=== PATIENT | female | born 1945 | race Hispanic/Latino ===

== ENCOUNTER 2018-08-24 13:21 | Emergency (ER) | payer MEDICARE, OTHER ==
[~2018-08-24] VITALS: Ht 180.3 cm; Wt 83.9 kg
[~2018-08-24 13:21] MED LIST: JANUMET 50-1,01 EACH PO; LIPITOR40 MG PO; OMEPRAZOLE40 MG PO; Z FENOFIBRATE; Z.0.ACTONEL35 MG; Z.0.LOSARTAN POTASS5 PO; Z.0.METFORMIN HCL500; Z.0.NORVASC2.5 MG PO; Z.0.ZOCOR40 MG; [UNRECOGNIZED DRUG - REMARK]
--- OUTSIDE RECORDS SUMMARY | 2018-08-24 13:25 | XMS REPORT | Summary of Care ---
Author Author Terrance Leal, Demetrius [place] Unknown Address [facility] Phone Unavailable Care Team Providers Care Manager Finance Name Role Phone Terrance Leal, Demetrius Unavailable Unavailable RADHA Kramer, ELI Unavailable Unavailable MATTY PRIDE M.D., JOSE ELIAS Unavailable Unavailable VIKI Leal, MELANI Unavailable Unavailable WENDY PRADO, DAYSI Hall Unavailable Unavailable WENDY Leal, DAYSI Unavailable Unavailable RADHA MUSE, ELI Unavailable Unavailable Jayson PRADO, Sascha Unavailable Unavailable TERRANCE PRADO [facility], DEMETRIUS Acosta Unavailable Unavailable VIKI PRADO [facility], MELANI VOSS Unavailable Unavailable Rubin PRADO, Rick Unavailable Unavailable CHRISTINA CORRIGAN [facility], KATTY Unavailable Unavailable ELIZABETH, JOSE ELIAS Unavailable Unavailable LISA PRADO [facility], PHONG HANNA Unavailable Unavailable Unavailable Unavailable Functional Status Name Dates Details Functional status health issues are not documented Status: Name Dates Details Cognitive status health issues are not documented Status: Problems Name Dates Details Need for pneumococcal vaccination (V03.82, Z23) Status: Active Osteoporosis (733.00, M81.0) Status: Active Need for vaccination with 13-polyvalent pneumococcal conjugate vaccine (V03.82, Z23) Status: Active Rheumatoid arthritis (714.0, M06.9) Status: Active Cervicalgia (723.1, M54.2) Status: Active Headache (784.0, R51) Status: Active Cataract (366.9, H26.9) Status: Active Flu vaccine need (V04.81, Z23) Status: Active UTI symptoms (788.99, R39.9) Status: Active Cramp and spasm (781.0, R25.2) Status: Active Pre-op exam (V72.84, Z01.818) Status: Active Dysuria (788.1, R30.0) Status: Active Paresthesia (782.0, R20.2) Status: Active Allergic rhinitis, seasonal (477.9, J30.2) Status: Active Essential hypertension, benign (401.1, I10) Status: Active Neuropathy (355.9, G62.9) Status: Active Depression screening (V79.0, Z13.31) Status: Active Encounter for mini-mental status examination Status: Active Advance directive discussed with patient (V65.49, Z71.89) Status: Active Urinary urgency (788.63, R39.15) Status: Active Encounter for hepatitis C virus screening test for high risk patient (V73.89, Z11.59) Status: Active Dysthymia (300.4, F34.1) Status: Active Chest pain on breathing (786.52, R07.1) Status: Active Diverticulitis (562.11, K57.92) Status: Active Depression (311, F32.9) Status: Active Colon cancer screening (V76.51, Z12.11) Status: Active IBS (irritable bowel syndrome) (564.1, K58.9) Status: Active Breast cancer screening (V76.10, Z12.31) Status: Active Acute foot pain, left (729.5, M79.672) Status: Active Left ankle pain (719.47, M25.572) Status: Active Right shoulder pain (719.41, M25.511) Status: Active Abnormal laboratory test (796.4, R89.9) Status: Active Hematuria (599.70, R31.9) Status: Active 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, 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) Status: Active Urinary incontinence (788.30, R32) Status: Active Fatigue (780.79, R53.83) Status: Active Hospital discharge follow-up (V67.59, Z09) Status: Active Abnormal blood chemistry (790.6, R79.9) Status: Active Shingles rash (053.9, B02.9) Status: Active Neuralgia, 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, 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) Status: Active Javier angioma (228.01, D18.01) Status: Active Seborrheic keratosis (702.19, L82.1) Status: Active Solar lentigo (709.09, L81.4) Status: Active Post-inflammatory hyperpigmentation (709.00, L81.0) Status: Active Vitamin D deficiency (268.9, E55.9) Status: Active Insomnia (780.52, G47.00) Status: Active Need for shingles vaccine (V04.89, Z23) Status: Active Vitamin B12 deficiency (266.2, E53.8) Status: Active Type 2 diabetes mellitus (250.00, E11.9) Status: Active Lymphoma (202.80, C85.90) Status: Active Hemolytic anemia (283.9, D58.9) Status: Active Diarrhea, unspecified (787.91, R19.7) Status: Active Abdominal pain (789.00, R10.9) Status: Active Acid reflux disease (530.81, K21.9) Status: Active Hyperlipidemia (272.4, E78.5) Status: Active Autoimmune hemolytic anemia (283.0, D59.1) Status: Active Tinea cruris (110.3, B35.6) Status: Active History of steroid therapy (V87.45, Z92.241) Status: Active Anxiety, generalized (300.02, F41.1) Status: Active Adult BMI 34.0-34.9 kg/sq m (V85.34, Z68.34) Status: Active Diabetes mellitus type 2, uncontrolled (250.02, E11.65) Status: Active Other closed nondisplaced fracture of proximal end of left humerus, initial encounter (812.09, S42.295A) Status: Active Anemia (285.9, D64.9) Status: Active Medications Name Dates Details Janumet 50-1000 MG Oral Tablet TAKE 1 TABLET BY MOUTH TWICE A DAY WITH MEALS... needs office visit Quantity: 180 VIKI Leal, MELANI * Start : 08-Jan-2016 Active Accu-Chek Chhaya Plus In Vitro Strip use to check blood sugar twice a day: fasting in the morning and either before o r 2 hours after dinner * Quantity: 1 Refills: 5 VIKI Leal, MELANI * Start : 10-Nov-2016 Active 100 Strip Box Accu-Chek FastClix Lancets USE TO CHECK BLOOD SUGAR TWICE A DAY * Quantity: 1 Refills: 5 MELANI DREW M.D. * Start : 10-Nov-2016 Active 102 Unit Box Zolpidem Tartrate 5 MG Oral Tablet TAKE 1 TABLET BY MOUTH AT BEDTIME NEEDED * Quantity: 30 Refills: 0 MELANI DREW M.D. * Start : 27-Jun-2018 Active predniSONE 20 MG Oral Tablet Take one tablet in the morning. * Quantity: 60 Refills: 3 Demetrius Fall M.D. * Start : 12-Aug-2017 Active Vitamin D (Ergocalciferol) 07537 UNIT Oral Capsule TAKE ONE CAPSULE BY MOUTH ONE TIME PER WEEK * Quantity: 13 Refills: 1 MELANI DREW M.D. * Start : 14-Apr-2018 Active Shingrix 50 MCG/0.5ML Intramuscular Suspension Reconstituted 0.5ml IM x 1, repeat second dose in 2-6 months. * Quantity: 1 Refills: 1 RADHA P.AELI Persaud * Start : 14-Feb-2018 Active Vitamin B12 1000 MCG Oral Tablet Extended Release TAKE 1 TABLET DAILY DIRECTED-OTC * Quantity: 90 Refills: 1 MELANI DREW M.D. * Start : 18-Apr-2018 Active Ergocalciferol 39911 UNIT Oral Capsule TAKE 1 CAPSULE WEEKLY. * Quantity: 4 Refills: 2 JOSE ELIAS SCOTT M.D. * Start : 01-Aug-2018 Active HYDROcodone-Acetaminophen 5-325 MG Oral Tablet TAKE 1 TABLET EVERY 4 TO 6 HOURS NEEDED FOR PAIN. * Quantity: 30 Refills: 0 JOSE ELIAS SCOTT M.D. * Start : 01-Aug-2018 Active Allergies and Adverse Reactions Name Dates Details No Known Allergies (Allergy) Status: Active Past Medical History Name Dates Details Type 2 diabetes mellitus (250.00, E11.9) Status: Active History of arthritis (V13.4, Z87.39) Status: Resolved History of diabetes mellitus (V12.29, Z86.39) Status: Resolved History of Diverticulosis (562.10, K57.90) Status: Resolved History of gout (V12.29, Z87.39) Status: Resolved History of hemorrhoids (V13.89, Z87.19) Status: Resolved History of hypertension (V12.59, Z86.79) Status: Resolved History of osteoporosis (V13.59, Z87.39) Status: Resolved Procedures Procedure Dates Details [H] Occult Blood, Fecal Immunoassay Date: 14-Aug-2018 History of Cholecystectomy Completed History of Colostomy Completed History of Gallbladder surgery Completed Immunization Name Dates Details Fluzone INJ on: 09-Feb-2014 Fluzone Quadrivalent 0.5 ML Intramuscular Suspension Lot #: [id number] on: 23-Jan-2015 Prevnar 13 Intramuscular Suspension Lot #: [id number] on: 23-Jan-2015 Fluzone Quadrivalent 0.5 ML Intramuscular Suspension Prefilled Syringe Lot #: [id number] on: 20-Jan-2016 Fluzone High-Dose 0.5 ML Intramuscular Suspension Prefilled Syringe Lot #: [id number] on: 11-Feb-2017 Fluzone High-Dose 0.5 ML Intramuscular Suspension Prefilled Syringe Lot #: [id number] on: 14-Feb-2018 Family History Name Dates Details Family history of malignant neoplasm (V16.9, Z80.9) Comments: Family History Status: Active Name Dates Details Family history of myocardial infarction (V17.3, Z82.49) Status: Active Family history of colon cancer (V16.0, Z80.0) Status: Active Name Dates Details Family history of lung cancer (V16.1, Z80.1) Status: Active Social History Name Dates Details - Status: Name Dates Details Former smoker Former smoker Vital Signs Date Test Result Details [id number] BP Systolic 110 mm[Hg] Status: Comments: Location: LUE; Position: Sitting BP Diastolic 68 mm[Hg] Status: Comments: Location: LUE; Position: Sitting Height 60 in Status: Weight 173 lb Status: Body Mass Index Calculated 33.79 kg/m2 Status: Body Surface Area Calculated 1.76 m2 Status: Heart Rate 82 /min Status: Comments: Location: L Radial; Quality: Normal Results Date Description Value Details [id number] [QLH] CBC (INCLUDES DIFF/PLT) CBC (INCLUDES DIFF/PLT) Cancel Reason: Ordered In Error [id number] [QLH] Differential Differential Cancel Reason: Lab Cancellation [id number] [U] XRAY SHOULDER MIN 2 VWS LEFT 73483 XR SHOULDER MIN 2 VWS LEFT Images acquired, not reported on this accession number. [id number] [QL] CBC (INCLUDES DIFF/PLT) CBC (INCLUDES DIFF/PLT) Cancel Reason: Hemolyzed [id number] [QL] Differential Differential Cancel Reason: Lab Cancellation Plan of Care Name Dates Details Planned Observations Planned Goals not documented Planned Encounters Appointment; Demetrius Fall M.D. On: 29-Aug-2018 11:00 Appointment; MELANI DREW M.D. On: 29-Aug-2018 14:40 Appointment; PHONG GONZALEZ M.D. On: 14-Sep-2018 11:15 Appointment; RICK JARAMILLO M.D. On: 19-Sep-2018 14:15 Appointment; KATTY VASQUEZ D.O. On: 27-Sep-2018 10:00 Appointment; ROSALBA BRADSHAW M.D. On: 20-Oct-2018 8:15 Instructions Name Dates Details Instructions not documented Encounters Appointment; ELI GARCIA P.A. Encounter Diagnosis: Problem not documented On: 06-Oct-2016 8:15 Appointment; Demetrius Fall M.D. Encounter Diagnosis: Problem not documented On: 19-Oct-2016 11:45 Appointment; Demetrius Fall M.D. Encounter Diagnosis: Problem not documented On: 09-Nov-2016 13:00 Appointment; MELANI DREW M.D. Encounter Diagnosis: Problem not documented On: 10-Nov-2016 8:00 Appointment; Demetrius Fall M.D. Encounter Diagnosis: Problem not documented On: 26-Nov-2016 10:45 Appointment; MELANI DREW M.D. Encounter Diagnosis: Problem not documented On: 29-Nov-2016 8:40 Appointment; MELANI DREW M.D. Encounter Diagnosis: Problem not documented On: 03-Jan-2017 15:40 Appointment; MARCELINO [address] Encounter Diagnosis: Problem not documented On: 07-Jan-2017 15:00 Appointment; Demetrius Fall M.D. Encounter Diagnosis: Problem not documented On: 11-Jan-2017 13:15 Appointment; ZABRINA MCNEILL M.D. Encounter Diagnosis: Problem not documented On: 19-Jan-2017 10:30 Appointment; MELANI DREW M.D. Encounter Diagnosis: Problem not documented On: 02-Feb-2017 16:00 Appointment; Demetrius Fall M.D. Encounter Diagnosis: Problem not documented On: 11-Feb-2017 11:30 Appointment; Demetrius Fall M.D. Encounter Diagnosis: Problem not documented On: 15-Apr-2017 13:15 Appointment; MELANI DREW M.D. Encounter Diagnosis: Problem not documented On: 03-May-2017 16:00 Appointment; Demetrius Fall M.D. Encounter Diagnosis: Problem not documented On: 10-May-2017 13:15 Appointment; ELI GARCIA P.A. Encounter Diagnosis: Problem not documented On: 01-Jun-2017 10:30 Appointment; Demetrius Fall M.D. Encounter Diagnosis: Problem not documented On: 10-Jun-2017 13:15 Appointment; MELANI DREW M.D. Encounter Diagnosis: Problem not documented On: 02-Aug-2017 16:00 Appointment; Demetrius Fall M.D. Encounter Diagnosis: Problem not documented On: 12-Aug-2017 13:15 Appointment; MELANI DREW M.D. Encounter Diagnosis: Problem not documented On: 12-Sep-2017 16:00 Appointment; ESTHELA KEENAN NP Encounter Diagnosis: Problem not documented On: 23-Sep-2017 10:00 Appointment; Demetrius Fall M.D. Encounter Diagnosis: Problem not documented On: 23-Sep-2017 13:15 Appointment; ESTHELA KEENAN NP Encounter Diagnosis: Problem not documented On: 30-Sep-2017 12:30 Appointment; MELANI DREW M.D. Encounter Diagnosis: Problem not documented On: 19-Oct-2017 16:00 Appointment; ROSALBA BRADSHAW M.D. Encounter Diagnosis: Problem not documented On: 21-Oct-2017 8:30 Appointment; MELANI DREW M.D. Encounter Diagnosis: Problem not documented On: 01-Nov-2017 15:40 Appointment; MELANI DREW M.D. Encounter Diagnosis: Problem not documented On: 10-Jan-2018 14:20 Appointment; MARCELINO HDZ RD Encounter Diagnosis: Problem not documented On: 11-Jan-2018 10:00 Appointment; MELANI DREW M.D. Encounter Diagnosis: Problem not documented On: 14-Feb-2018 10:00 Appointment; MELANI DREW M.D. Encounter Diagnosis: Problem not documented On: 17-Apr-2018 10:00 Appointment; RICK JARAMILLO M.D. Encounter Diagnosis: Problem not documented On: 26-May-2018 13:00 Appointment; RICK JARAMILLO M.D. Encounter Diagnosis: Problem not documented On: 19-Jun-2018 14:45 Appointment; KATTY VASQUEZ D.O. Encounter Diagnosis: Problem not documented On: 28-Jun-2018 13:30 Appointment; RICK JARAMILLO M.D. Encounter Diagnosis: Problem not documented On: 06-Jul-2018 9:30 Appointment; MELANI DREW M.D. Encounter Diagnosis: Problem not documented On: 17-Jul-2018 10:00 Appointment; JOSE ELIAS SCOTT M.D. Encounter Diagnosis: Problem not documented On: 01-Aug-2018 12:30 Appointment; RICK JARAMILLO M.D. Encounter Diagnosis: Problem not documented On: 07-Aug-2018 10:15 Appointment; RICK JARAMILLO M.D. Encounter Diagnosis: Problem not documented On: 14-Aug-2018 16:15 Appointment; PHONG GONZALEZ M.D. Encounter Diagnosis: Problem not documented On: 15-Aug-2018 11:00
--- OUTSIDE RECORDS SUMMARY | 2018-08-24 13:25 | XMS REPORT ---
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 Allergies, Adverse Reactions, Alerts Allergy Name Allergy Type Status Severity Reaction(s) Onset Date Inactive Date Treating Clinician Comments No Known Allergies DA Active U 2018-07-30 00:00:00 No Known Allergies DA Active U 2017-09-16 00:00:00 Medications This patient has no known medications. Results Test Description Test Time Test Comments Text Results Atomic Results Result Comments - XR HUMERUS 2 + V LT 2018-07-30 15:22:00 FAX: Glendy Lamas [phone] [place]: St: PRE Name: ANDREALEEROY [facility] : 1945 Age/S: 73/F [address] [place] [address] Unit #: [id number] Loc: [place] [address] Phys: Glendy Whitlock Acct: [id number] Dis Date: Status: PRE ER PHONE #: [phone] Exam Date: 07/30/2018 1517 FAX #: [phone] Reason: continued pain, surgical neck fracture EXAMS: CPT CODE: [id number] XR HUMERUS 2 + [place] LT [address]353 Clinical Indication: continued pain, surgical neck fracture Comparison: None FINDINGS: A comminuted fracture of the left humeral head is present. The left humeral head is also inferiorly and anteriorly displaced from the glenoid The joint spaces are preserved. No radiopaque foreign body is seen in the soft tissues. The soft tissues are unremarkable. IMPRESSION: Left humeral head fracture with anteriorly and inferiorly left shoulder dislocation. SL: [id number] at 1522 Reported and signed by: Zeferino Aponte M.D. CC: Glendy MUSE Technologist: Oralia Johnson RT(R) Trnscrd Date/Time/By: 07/30/2018 (1522) : By: Chan.LNV Orig Print D/T: S: 07/30/2018 (6419) PAGE 1 Signed Report LEUK/LYMPH MARKERS D 2018-07-25 14:30:00 LEUK/LYMPHOMA PANEL (test code=LEULYM) CLINICAL () A CD5+, CD23+ clonal B cell population is detected with dim kappa lightchain restriction, representing 39% of the B cells and 1% of theleukocytes. The phenotype is typical of chronic lymphocytic leukemia(CLL)/small lymphocytic lymphoma (SLL). There is no significant expressionof CD38.There is no loss of, or aberrant expression of, the draper T cell antigens tosuggest a neoplastic T cell process.CD4:CD8 ratio 0.9No circulating blasts are detected. There is no immunophenotypic evidenceof abnormal myeloid maturation. Rare neutrophils show slightly left- shiftedmaturation.Rare monocytes show partial dim aberrant expression of CD56, a finding thatcan be seen in association with both reactive/activated processes as wellas neoplastic processes.Analysis of the leukocyte population shows: granulocytes 89%, monocytes 6%,lymphocytes 5%, blasts <0.5%, B cells 2%, T cells 2%, NK cells 1%. COMMENT(S) (test code=COMM) () Peripheral blood VIABILITY (test code=VIABILI) () 91% The specimen was 3 days old when received in the Flow Cytometrylaboratory. FLOW CYTO INTERPRETATION (test code=INTFLOW) () Oralia Beasley GATING STRATEGY (test code=GATSTRAT) () 8 color analysis with CD45/SSC gating COMMENT(S) (test code=COM) Flow Interpretation:Minute CD5+, CD23+ clonal B cell population detected,compatible with CLL/SLL phenotype, CD38 negative, 1% ofleukocytes, <5000 cells/uL. (See comment.) Flow Comment:Recommend clinical correlation and follow up as appropriate.If the patient has a prior diagnosis of CLL, then thefindings may represent persistent involvement. In theabsence of a prior diagnosis of leukemia/lymphoma, thefinding of a small (<5000 cells/uL) clonal B cell populationsuggests monoclonal B cell lymphocytosis. Phenotype Chart:CD2 (-) CD3 (-)CD4 (-) CD5 (+)CD7 (-) CD8 (-)CD10 (-) CD11b (-)CD11c (+) CD13 (-)CD14 (-) CD15 (-)CD16 (-) CD19 (+)CD20 (+) CD22 (+)CD23 (+) CD33 (-)CD34 (-) CD38 (-)CD45 (+) CD56 (-)CD57 (-) CD103 (-)CD117 (-) FMC-7 (+)HLA-DR (+) KAPPA (+) DimLAMBDA (-) CD64 (-) Comment: Each antibody in this assay was utilized to assess for potential abnormalities of studied cell populations or to characterize identified abnormalities. This test was developed and its performance characteristics determined by [employer]. It has not been cleared or approved by the U.S. Food and Drug Administration. The FDA has determined that such clearance or approval is not necessary. This test is used for clinical purposes. It should not be regarded as investigational or for research. Test performed at: [facility] [address] [place] [address] LEUK/LYMPH MARKERS [id number] 13:12:00* Test Item Value Reference Range Comments LEUK/LYMPHOMA PANEL (test code=LEULYM) CLINICAL () A CD5+, CD23+ clonal B cell population is detected with dim kappa lightchain restriction, representing 39% of the B cells and 1% of theleukocytes. The phenotype is typical of chronic lymphocytic leukemia(CLL)/small lymphocytic lymphoma (SLL). There is no significant expressionof CD38.There is no loss of, or aberrant expression of, the draper T cell antigens tosuggest a neoplastic T cell process.CD4:CD8 ratio 0.9No circulating blasts are detected. There is no immunophenotypic evidenceof abnormal myeloid maturation. Rare neutrophils show slightly left- shiftedmaturation.Rare monocytes show partial dim aberrant expression of CD56, a finding thatcan be seen in association with both reactive/activated processes as wellas neoplastic processes.Analysis of the leukocyte population shows: granulocytes 89%, monocytes 6%,lymphocytes 5%, blasts <0.5%, B cells 2%, T cells 2%, NK cells 1%. COMMENT(S) (test code=COMM) () Peripheral blood VIABILITY (test code=VIABILI) () 91% The specimen was 3 days old when received in the Flow Cytometrylaboratory. FLOW CYTO INTERPRETATION (test code=INTFLOW) () Oralia Beasley GATING STRATEGY (test code=GATSTRAT) () 8 color analysis with CD45/SSC gating COMMENT(S) (test code=COM) PROTEIN ELECTROPHORESIS [id number] 17:07:00* Test Item Value Reference Range Comments TOTAL PROTEIN (test code=PROTE) 7.0 g/dL 6.0-8.5 ALBUMIN (test code=ALBE) 3.7 g/dL 2.9-4.4 TPNVH-7-[id number] (test code=A1G) 0.3 g/dL 0.0-0.4 PBGBH-5-KKFDRNHD (test code=A2G) 0.5 g/dL 0.4-1.0 BETA GLOBULIN (test code=BG) 0.9 g/dL 0.7-1.3 GAMMA GLOBULIN (test code=GG) 1.6 g/dL 0.4-1.8 M-SPIKE,SERUM (test code=MSPIKES) 0.7 g/dL Not Observed GLOBULIN ELECT (test code=GLOBE) 3.3 g/dL 2.2-3.9 ALBUMIN/GLOBULIN RATIO (CALC) (test code=A/GC) Ratio () Protein electrophoresis scan will follow via computer,mail, or environmental projects advisor delivery.Performed At: [facility] [address] [id number] Kyle L MD Ph:[phone] At: OPAL [facility] [address] [place], [place] [id number] CN MD Ph:[phone] IMMUNOELECTROPHORESIS [id number] 17:07:00* Test Item Value Reference Range Comments IMMUNOFIXATION SERUM (test code=IMMFIXS) () Immunofixation shows IgM monoclonal protein with kappalight chain specificity. IMMUNOGLOBULIN G (test code=IGG) 929 mg/dL 700-1600 IMMUNOGLOBULIN M (test code=IGM) 971 mg/dL 26-217 Results confirmed ondilution. IMMUNOGLOBULIN A (test code=IGA) 371 mg/dL 64-422 RETICULOCYTE [id number] 03:08:00* Test Item Value Reference Range Comments RETICULOCYTE COUNT (test code=RETICT) 10.1 % 0.5-2.0 RETIC COUNT ABSOLUTE (test code=RET#) 0.156 mill/mm3 0.016-0.095 IMMATURE RETICULOCYTE FRACTION (test code=IRF) 32.2 % 3.0-15.9 Values above normal range indicate an increase in RBCcellular response from bone marrow. RETICULOCYTE HGB EQUIVALENT (test code=RETHE) 37.5 pg 28.2-35.7 RET-He is a direct estimate of recent functionalavailability of iron in the cell, therefore, decreasedRET-He is indicative of iron deficiency. [id number] 03:08:00* Test Item Value Reference Range Comments HAPTOGLOBIN (test code=HAPT) <10 mg/dL 34-200 Performed At: [facility] [id number] Monteiro MD Ph:[phone] [id number] 17:52:00* Test Item Value Reference Range Comments GLUBED (test code=GLUBED) 225 mg/dL 74-106 Performed by certified electrical prospecting operator at [facility] [id number] 12:55:00* Test Item Value Reference Range Comments GLUBED (test code=GLUBED) 139 mg/dL 74-106 Performed by certified electrical prospecting operator at [facility] COLD [id number] 12:14:00* Test Item Value Reference Range Comments COLD AGGLUTININS (test code=COLD) Negative Neg <1:32 Performed At: [facility] [id number] [place], [place] [id number] Johnie Ramirez MD Ph:[phone] [id number] 07:53:00* Test Item Value Reference Range Comments GLUBED (test code=GLUBED) 121 mg/dL 74-106 Performed by certified electrical prospecting operator at [facility] CBC W/MANUAL [id number] 22:34:00* Test Item Value Reference Range Comments WHITE BLOOD CELL (test code=WBC) 13.9 K/mm3 4.5-12.5 RED BLOOD CELL (test code=RBC) 1.44 mill/mm3 3.7-5.2 HEMOGLOBIN (test code=HGB) 8.9 gram/dL 11.5-15.5 HEMATOCRIT (test code=HCT) 19.1 % 36.0-46.0 Results called to [id number] by V.LAB.TS1 07/20/18 2203Critical results verified and read back by Nurse? Y MEAN CELL VOLUME (test code=MCV) 118.8 fL 80-98 MEAN CELL HGB (test code=MCH) 61.8 picogram 27.0-33.0 MEAN CELL HGB CONCETRATION (test code=MCHC) 52.0 gram/dL 33.0-36.0 RED CELL DISTRIBUTION WIDTH (test code=RDW) 27.4 % 11.6-16.2 RED CELL DISTRIBUTION WIDTH SD (test code=RDW-SD) 62.6 fL 37.0-51.0 PLATELET COUNT (test code=PLT) 287 K/mm3 150-450 MEAN PLATELET VOLUME (test code=MPV) 10.3 fL 6.7-11.0 IMMATURE GRANULOCYTE % (test code=IG%) 1.1 % 0.0-5.0 NUCLEATED RBC % (test code=NRBC%) 0.3 % 0-0 NEUTROPHIL # (test code=NT#) 9.26 K/mm3 1.8-7.7 IMMATURE GRANULOCYTE # (test code=IG#) 0.15 x10 3/uL 0-0.03 LYMPHOCYTE # (test code=LY#) 3.18 K/mm3 1.0-5.0 MONOCYTE # (test code=MO#) 1.23 K/mm3 0-0.8 EOSINOPHIL # (test code=EO#) 0.01 K/mm3 0.0-0.5 BASOPHIL # (test code=BA#) 0.07 K/mm3 0.0-0.2 NUCLEATED RBC # (test code=NRBC#) 0.04 K/mm3 0.0-0.1 MANUAL DIFF REQUIRED (test code=MDIFF) YES STAIN ACCEPTABILITY (test code=STN ACCEPTABLE) STAIN ACCEPTABLE TOTAL CELLS COUNTED (test code=TCC) 100 #CELLS SEGMENTED NEUTROPHILS (test code=SEG) 60 % 39-69 BAND NEUTROPHIL (test code=BAND) 1 % 0-10 LYMPHOCYTE (test code=LYMPH) 30 % 25-55 MONOCYTE (test code=MON) 8 % 0-10 EOSINOPHIL (test code=EOS) 1 % 0.0-5.0 POLYCHROMASIA (test code=POLC) 1+ ANISOCYTOSIS (test code=ANISO) 1+ MACROCYTOSIS (test code=MACR) 1+ ROULEAUX (test code=ROU) MARKED PLATELET ESTIMATE (test code=PLTEST) ADEQUATE PLATELET MORPHOLOGY (test code=PLTMORPH) CLUMPING PRESENT CBC W/MANUAL [id number] 22:03:00* Test Item Value Reference Range Comments WHITE BLOOD CELL (test code=WBC) 13.9 K/mm3 4.5-12.5 RED BLOOD CELL (test code=RBC) 1.44 mill/mm3 3.7-5.2 HEMOGLOBIN (test code=HGB) 8.9 gram/dL 11.5-15.5 HEMATOCRIT (test code=HCT) 19.1 % 36.0-46.0 Results called to [id number] by V.LAB.TS1 07/20/18 2203Critical results verified and read back by Nurse? Y MEAN CELL VOLUME (test code=MCV) 118.8 fL 80-98 MEAN CELL HGB (test code=MCH) 61.8 picogram 27.0-33.0 MEAN CELL HGB CONCETRATION (test code=MCHC) 52.0 gram/dL 33.0-36.0 RED CELL DISTRIBUTION WIDTH (test code=RDW) 27.4 % 11.6-16.2 RED CELL DISTRIBUTION WIDTH SD (test code=RDW-SD) 62.6 fL 37.0-51.0 PLATELET COUNT (test code=PLT) 287 K/mm3 150-450 MEAN PLATELET VOLUME (test code=MPV) 10.3 fL 6.7-11.0 IMMATURE GRANULOCYTE % (test code=IG%) 1.1 % 0.0-5.0 NUCLEATED RBC % (test code=NRBC%) 0.3 % 0-0 NEUTROPHIL # (test code=NT#) 9.26 K/mm3 1.8-7.7 IMMATURE GRANULOCYTE # (test code=IG#) 0.15 x10 3/uL 0-0.03 LYMPHOCYTE # (test code=LY#) 3.18 K/mm3 1.0-5.0 MONOCYTE # (test code=MO#) 1.23 K/mm3 0-0.8 EOSINOPHIL # (test code=EO#) 0.01 K/mm3 0.0-0.5 BASOPHIL # (test code=BA#) 0.07 K/mm3 0.0-0.2 NUCLEATED RBC # (test code=NRBC#) 0.04 K/mm3 0.0-0.1 MANUAL DIFF REQUIRED (test code=MDIFF) YES STAIN ACCEPTABILITY (test code=STN ACCEPTABLE) TOTAL CELLS COUNTED (test code=TCC) #CELLS SEGMENTED NEUTROPHILS (test code=SEG) % 39-69 LYMPHOCYTE (test code=LYMPH) % 25-55 MONOCYTE (test code=MON) % 0-10 MORPHOLOGY COMMENT (test code=MOC) PLATELET ESTIMATE (test code=PLTEST) PLATELET MORPHOLOGY (test code=PLTMORPH) [id number] 20:25:00* Test Item Value Reference Range Comments GLUBED (test code=GLUBED) 189 mg/dL 74-106 Performed by certified electrical prospecting operator at [facility] [id number] 16:44:00* Test Item Value Reference Range Comments GLYCOSYLATED HEMOGLOBIN (HA1C) (test code=GLYHGB) 5.9 % HbA1 4.8-6.0 ESTIMATED AVERAGE GLUCOSE (test code=EAG) 123 MG/DL [id number] 16:26:00* Test Item Value Reference Range Comments GLUBED (test code=GLUBED) 235 mg/dL 74-106 Performed by certified electrical prospecting operator at [facility] T4 [id number] 15:05:00* Test Item Value Reference Range Comments T4 FREE (test code=T4F) 1.12 ng/dL 0.76-1.46 THYROID STIMULATING [id number] 15:05:00* Test Item Value Reference Range Comments THYROID STIMULATING HORMONE (test code=TSH) 1.930 uIU/mL 0.36-3.74 TSH REFERENCE RANGES: EUTHYROID: 0.35 - 4.3 mIU/mL HYPO : > 5.5 mIU/mL HYPER : < 0.35 mIU/mL [id number] 11:49:00* Test Item Value Reference Range Comments GLUBED (test code=GLUBED) 220 mg/dL 74-106 Performed by certified electrical prospecting operator at [facility] [id number] 08:00:00* Test Item Value Reference Range Comments GLUBED (test code=GLUBED) 140 mg/dL 74-106 Performed by certified electrical prospecting operator at [facility] RETICULOCYTE [id number] 01:14:00* Test Item Value Reference Range Comments RETICULOCYTE COUNT (test code=RETICT) 10.1 % 0.5-2.0 RETIC COUNT ABSOLUTE (test code=RET#) 0.156 mill/mm3 0.016-0.095 IMMATURE RETICULOCYTE FRACTION (test code=IRF) 32.2 % 3.0-15.9 Values above normal range indicate an increase in RBCcellular response from bone marrow. RETICULOCYTE HGB EQUIVALENT (test code=RETHE) 37.5 pg 28.2-35.7 RET-He is a direct estimate of recent functionalavailability of iron in the cell, therefore, decreasedRET-He is indicative of iron deficiency. [id number] 01:14:00* Test Item Value Reference Range Comments HAPTOGLOBIN (test code=HAPT) mg/dL [id number] 23:57:00* Test Item Value Reference Range Comments GLUBED (test code=GLUBED) 276 mg/dL 74-106 Performed by certified electrical prospecting operator at [facility] - MRI BRAIN W/O [id number] 18:26:00 FAX: Pretty Raymond MD [phone] [place]: B St: ADM FAX: Sakina Seymour FAX: Keon Harry [phone] Name: LEEROY MNEDEZ [facility] : 1945 Age/S: 73/F [address] Unit #: [id number] Loc: V.[address] [place] [address] Phys: Keon Harry MD Acct: [id number] Dis Date: Status: ADM IN ONE #: [phone] Exam Date: 07/19/2018 1754 FAX #: [phone] Reason: SYNCOPE AND FALL EXAMS: CPT CODE: [id number] MR I BRAIN W/O CONTRAST 42848 REASON FOR EXA M: SYNCOPE AND FALL Exam Order Date: 07/19/2018 11:35 AM Attending Elvis: Keon Stafford MD Procedure: - MRI B RAIN W/O CONTRAST Comparison: FINDINGS: Axial, sagit rebeca, and coronal images of the head were obtained using T1, T2 weighted, i nversion recovery, and gradient echo sequences. The diffusion images are within normal limits without abnormal signal intensity to suggest acute in farct. No IV gadolinium was given. The sagittal images show normal cerebellum, and brain stem. No evidence of suprasellar mass. The axial T2, inversion recovery, and gradient echo images show no evidence of intra or extra axial mass. The ventricles, cisterns, and sulci are unremarkable. No evidence of hemorrhage. The cerebellar pont ine angle area is within normal limits. There is no evidence of mass noted . The axial T1 images show no evidence of mass. No e vidence of old infarct. The coronal images show normal opt ic chiasm. 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 at 3217 Reported and signed by: Erich Camacho M.D. PAGE 1 Signed Report (CONTINUED) FAX: Pretty Raymond MD [phone] [place]: St: ADM FAX: Sakina Seymour FAX: Keon Harry [phone] Name: LEEROY MENDEZ [facility] : 1945 Age/S: 73/F [address] [facility] Unit #: [id number] Loc: V.[address] [place] [address] Phys: Keon Harry MD Acct: [id number] Dis Date: Status: ADM IN PHONE #: [phone] Exam Da te: 07/19/2018 1754 FAX #: [phone] Reason: SY NCOPE AND FALL EXAMS: CPT CODE: [id number] MRI BRAIN W/O CONTRAST 19809 <Continued> CC: Pretty Jaramillo MD; Sakina Seymour; Keon Harry MD Technologist: Dasha Bustillos(Karla)(MR) Trnscrd Date/Time/By: 07/19/2018 (1825) : By: JustinVTL Orig Print D/T: S: 07/19/2018 (1828) PAGE 2 Signed Report SERUM [id number] 17:53:00* Test Item Value Reference Range Comments SERUM IRON (test code=IRON) 46 ug/dL 50-175 VITAMIN [id number] 17:53:00* Test Item Value Reference Range Comments VITAMIN B12 (test code=VITB12) 429 pg/mL 193-986 FOLIC [id number] 17:53:00* Test Item Value Reference Range Comments FOLIC ACID (test code=FOL) 7.9 ng/mL 3.10-17.50 [id number] 17:53:00* Test Item Value Reference Range Comments FERRITIN (test code=CHELO) 485 ng/mL 8-388 [id number] 17:32:00* Test Item Value Reference Range Comments GLUBED (test code=GLUBED) 245 mg/dL 74-106 Performed by certified electrical prospecting operator at [facility] CBC W/MANUAL [id number] 15:53:00* Test Item Value Reference Range Comments WHITE BLOOD CELL (test code=WBC) 11.9 K/mm3 4.5-12.5 RED BLOOD CELL (test code=RBC) 1.78 mill/mm3 3.7-5.2 HEMOGLOBIN (test code=HGB) 8.3 gram/dL 11.5-15.5 HEMATOCRIT (test code=HCT) 20.5 % 36.0-46.0 Results called to [id number] by BIANCA 07/19/18 1223Critical results verified and read back by Nurse? Y MEAN CELL VOLUME (test code=MCV) 113.3 fL 80-98 Result possibly inaccurate due to strong cold agglutinin.Refer to RBC morphorlogy. MEAN CELL HGB (test code=MCH) 46.6 picogram 27.0-33.0 MEAN CELL HGB CONCETRATION (test code=MCHC) 40.5 gram/dL 33.0-36.0 RED CELL DISTRIBUTION WIDTH (test code=RDW) 26.1 % 11.6-16.2 RED CELL DISTRIBUTION WIDTH SD (test code=RDW-SD) 64.6 fL 37.0-51.0 PLATELET COUNT (test code=PLT) 280 K/mm3 150-450 MEAN PLATELET VOLUME (test code=MPV) 11.1 fL 6.7-11.0 IMMATURE GRANULOCYTE % (test code=IG%) 0.9 % 0.0-5.0 NUCLEATED RBC % (test code=NRBC%) 0.3 % 0-0 NEUTROPHIL # (test code=NT#) 7.32 K/mm3 1.8-7.7 IMMATURE GRANULOCYTE # (test code=IG#) 0.11 x10 3/uL 0-0.03 LYMPHOCYTE # (test code=LY#) 3.20 K/mm3 1.0-5.0 MONOCYTE # (test code=MO#) 1.09 K/mm3 0-0.8 EOSINOPHIL # (test code=EO#) 0.10 K/mm3 0.0-0.5 BASOPHIL # (test code=BA#) 0.08 K/mm3 0.0-0.2 NUCLEATED RBC # (test code=NRBC#) 0.03 K/mm3 0.0-0.1 MANUAL DIFF REQUIRED (test code=MDIFF) YES STAIN ACCEPTABILITY (test code=STN ACCEPTABLE) STAIN ACCEPTABLE TOTAL CELLS COUNTED (test code=TCC) 117 #CELLS SEGMENTED NEUTROPHILS (test code=SEG) 61.6 % 39-69 BAND NEUTROPHIL (test code=BAND) 0 % 0-10 LYMPHOCYTE (test code=LYMPH) 23.9 % 25-55 REACTIVE LYMPH (test code=RELYMPH) 0 % MONOCYTE (test code=MON) 11.1 % 0-10 EOSINOPHIL (test code=EOS) 1.7 % 0.0-5.0 BASOPHIL (test code=BASO) 1.7 % 0-1.0 METAMYELOCYTE (test code=META) 0 % 0-0 MYELOCYTE (test code=MYELO) 0 % 0.0-0.0 PROMYELOCYTE (test code=PROM) 0 % 0-0 POLYCHROMASIA (test code=POLC) 2+ HYPOCHROMIA (test code=HYPO) 1+ ANISOCYTOSIS (test code=ANISO) 2+ MICROCYTOSIS (test code=MICR) 1+ MACROCYTOSIS (test code=MACR) 1+ ROULEAUX (test code=ROU) MARKED MANY RBC CLUMPS SEEN PLATELET ESTIMATE (test code=PLTEST) ADEQUATE PLATELET MORPHOLOGY (test code=PLTMORPH) SIZE VARIABLE IMMATURE FORMS (test code=IMMAT) 0 % PATHOLOGISTS [id number] 15:53:00* Test Item Value Reference Range Comments PATHOLOGISTS FINDINGS (test code=PATH) PATH NOTES NEUTROPHILIA, MONOCYTOSIS, ANEMIA WITH RED BLOOD CELLCLUMPING - SUSPECT COLD AGGLUTININ. FINDINGS DISCUSSED WITHDR MAURO. REVIEWED BY ANGELICA ALONZO M.D.07/19/18 [id number] 13:01:00* Test Item Value Reference Range Comments GLUBED (test code=GLUBED) 150 mg/dL 74-106 Performed by certified electrical prospecting operator at [facility] CBC W/MANUAL [id number] 12:58:00* Test Item Value Reference Range Comments WHITE BLOOD CELL (test code=WBC) 11.9 K/mm3 4.5-12.5 RED BLOOD CELL (test code=RBC) 1.78 mill/mm3 3.7-5.2 HEMOGLOBIN (test code=HGB) 8.3 gram/dL 11.5-15.5 HEMATOCRIT (test code=HCT) 20.5 % 36.0-46.0 Results called to [id number] by BIANCA 07/19/18 1223Critical results verified and read back by Nurse? Y MEAN CELL VOLUME (test code=MCV) 113.3 fL 80-98 Result possibly inaccurate due to strong cold agglutinin.Refer to RBC morphorlogy. MEAN CELL HGB (test code=MCH) 46.6 picogram 27.0-33.0 MEAN CELL HGB CONCETRATION (test code=MCHC) 40.5 gram/dL 33.0-36.0 RED CELL DISTRIBUTION WIDTH (test code=RDW) 26.1 % 11.6-16.2 RED CELL DISTRIBUTION WIDTH SD (test code=RDW-SD) 64.6 fL 37.0-51.0 PLATELET COUNT (test code=PLT) 280 K/mm3 150-450 MEAN PLATELET VOLUME (test code=MPV) 11.1 fL 6.7-11.0 IMMATURE GRANULOCYTE % (test code=IG%) 0.9 % 0.0-5.0 NUCLEATED RBC % (test code=NRBC%) 0.3 % 0-0 NEUTROPHIL # (test code=NT#) 7.32 K/mm3 1.8-7.7 IMMATURE GRANULOCYTE # (test code=IG#) 0.11 x10 3/uL 0-0.03 LYMPHOCYTE # (test code=LY#) 3.20 K/mm3 1.0-5.0 MONOCYTE # (test code=MO#) 1.09 K/mm3 0-0.8 EOSINOPHIL # (test code=EO#) 0.10 K/mm3 0.0-0.5 BASOPHIL # (test code=BA#) 0.08 K/mm3 0.0-0.2 NUCLEATED RBC # (test code=NRBC#) 0.03 K/mm3 0.0-0.1 MANUAL DIFF REQUIRED (test code=MDIFF) YES STAIN ACCEPTABILITY (test code=STN ACCEPTABLE) STAIN ACCEPTABLE TOTAL CELLS COUNTED (test code=TCC) 117 #CELLS SEGMENTED NEUTROPHILS (test code=SEG) 61.6 % 39-69 BAND NEUTROPHIL (test code=BAND) 0 % 0-10 LYMPHOCYTE (test code=LYMPH) 23.9 % 25-55 REACTIVE LYMPH (test code=RELYMPH) 0 % MONOCYTE (test code=MON) 11.1 % 0-10 EOSINOPHIL (test code=EOS) 1.7 % 0.0-5.0 BASOPHIL (test code=BASO) 1.7 % 0-1.0 METAMYELOCYTE (test code=META) 0 % 0-0 MYELOCYTE (test code=MYELO) 0 % 0.0-0.0 PROMYELOCYTE (test code=PROM) 0 % 0-0 POLYCHROMASIA (test code=POLC) 2+ HYPOCHROMIA (test code=HYPO) 1+ ANISOCYTOSIS (test code=ANISO) 2+ MICROCYTOSIS (test code=MICR) 1+ MACROCYTOSIS (test code=MACR) 1+ ROULEAUX (test code=ROU) MARKED MANY RBC CLUMPS SEEN PLATELET ESTIMATE (test code=PLTEST) ADEQUATE PLATELET MORPHOLOGY (test code=PLTMORPH) SIZE VARIABLE IMMATURE FORMS (test code=IMMAT) 0 % PATHOLOGISTS [id number] 12:58:00* Test Item Value Reference Range Comments PATHOLOGISTS FINDINGS (test code=PATH) PATH NOTES CBC W/MANUAL [id number] 12:56:00 * Test Item Value Reference Range Comments WHITE BLOOD CELL (test code=WBC) 11.9 K/mm3 4.5-12.5 RED BLOOD CELL (test code=RBC) 1.78 mill/mm3 3.7-5.2 HEMOGLOBIN (test code=HGB) 8.3 gram/dL 11.5-15.5 HEMATOCRIT (test code=HCT) 20.5 % 36.0-46.0 Results called to [id number] by BIANCA 07/19/18 1223Critical results verified and read back by Nurse? Y MEAN CELL VOLUME (test code=MCV) 113.3 fL 80-98 Result possibly inaccurate due to strong cold agglutinin.Refer to RBC morphorlogy. MEAN CELL HGB (test code=MCH) 46.6 picogram 27.0-33.0 MEAN CELL HGB CONCETRATION (test code=MCHC) 40.5 gram/dL 33.0-36.0 RED CELL DISTRIBUTION WIDTH (test code=RDW) 26.1 % 11.6-16.2 RED CELL DISTRIBUTION WIDTH SD (test code=RDW-SD) 64.6 fL 37.0-51.0 PLATELET COUNT (test code=PLT) 280 K/mm3 150-450 MEAN PLATELET VOLUME (test code=MPV) 11.1 fL 6.7-11.0 IMMATURE GRANULOCYTE % (test code=IG%) 0.9 % 0.0-5.0 NUCLEATED RBC % (test code=NRBC%) 0.3 % 0-0 NEUTROPHIL # (test code=NT#) 7.32 K/mm3 1.8-7.7 IMMATURE GRANULOCYTE # (test code=IG#) 0.11 x10 3/uL 0-0.03 LYMPHOCYTE # (test code=LY#) 3.20 K/mm3 1.0-5.0 MONOCYTE # (test code=MO#) 1.09 K/mm3 0-0.8 EOSINOPHIL # (test code=EO#) 0.10 K/mm3 0.0-0.5 BASOPHIL # (test code=BA#) 0.08 K/mm3 0.0-0.2 NUCLEATED RBC # (test code=NRBC#) 0.03 K/mm3 0.0-0.1 MANUAL DIFF REQUIRED (test code=MDIFF) YES STAIN ACCEPTABILITY (test code=STN ACCEPTABLE) STAIN ACCEPTABLE TOTAL CELLS COUNTED (test code=TCC) 117 #CELLS SEGMENTED NEUTROPHILS (test code=SEG) 61.6 % 39-69 BAND NEUTROPHIL (test code=BAND) 0 % 0-10 LYMPHOCYTE (test code=LYMPH) 23.9 % 25-55 REACTIVE LYMPH (test code=RELYMPH) 0 % MONOCYTE (test code=MON) 11.1 % 0-10 EOSINOPHIL (test code=EOS) 1.7 % 0.0-5.0 BASOPHIL (test code=BASO) 1.7 % 0-1.0 METAMYELOCYTE (test code=META) 0 % 0-0 MYELOCYTE (test code=MYELO) 0 % 0.0-0.0 PROMYELOCYTE (test code=PROM) 0 % 0-0 POLYCHROMASIA (test code=POLC) 2+ HYPOCHROMIA (test code=HYPO) 1+ ANISOCYTOSIS (test code=ANISO) 2+ MICROCYTOSIS (test code=MICR) 1+ MACROCYTOSIS (test code=MACR) 1+ ROULEAUX (test code=ROU) MARKED MANY RBC CLUMPS SEEN PLATELET ESTIMATE (test code=PLTEST) ADEQUATE PLATELET MORPHOLOGY (test code=PLTMORPH) SIZE VARIABLE IMMATURE FORMS (test code=IMMAT) 0 % CBC W/MANUAL [id number] 12:28:00 * Test Item Value Reference Range Comments WHITE BLOOD CELL (test code=WBC) 11.9 K/mm3 4.5-12.5 RED BLOOD CELL (test code=RBC) 1.78 mill/mm3 3.7-5.2 HEMOGLOBIN (test code=HGB) 8.3 gram/dL 11.5-15.5 HEMATOCRIT (test code=HCT) 20.5 % 36.0-46.0 Results called to [id number] by BIANCA 07/19/18 1223Critical results verified and read back by Nurse? Y MEAN CELL VOLUME (test code=MCV) 113.3 fL 80-98 Result possibly inaccurate due to strong cold agglutinin.Refer to RBC morphorlogy. MEAN CELL HGB (test code=MCH) 46.6 picogram 27.0-33.0 MEAN CELL HGB CONCETRATION (test code=MCHC) 40.5 gram/dL 33.0-36.0 RED CELL DISTRIBUTION WIDTH (test code=RDW) 26.1 % 11.6-16.2 RED CELL DISTRIBUTION WIDTH SD (test code=RDW-SD) 64.6 fL 37.0-51.0 PLATELET COUNT (test code=PLT) 280 K/mm3 150-450 MEAN PLATELET VOLUME (test code=MPV) 11.1 fL 6.7-11.0 IMMATURE GRANULOCYTE % (test code=IG%) 0.9 % 0.0-5.0 NUCLEATED RBC % (test code=NRBC%) 0.3 % 0-0 NEUTROPHIL # (test code=NT#) 7.32 K/mm3 1.8-7.7 IMMATURE GRANULOCYTE # (test code=IG#) 0.11 x10 3/uL 0-0.03 LYMPHOCYTE # (test code=LY#) 3.20 K/mm3 1.0-5.0 MONOCYTE # (test code=MO#) 1.09 K/mm3 0-0.8 EOSINOPHIL # (test code=EO#) 0.10 K/mm3 0.0-0.5 BASOPHIL # (test code=BA#) 0.08 K/mm3 0.0-0.2 NUCLEATED RBC # (test code=NRBC#) 0.03 K/mm3 0.0-0.1 MANUAL DIFF REQUIRED (test code=MDIFF) YES STAIN ACCEPTABILITY (test code=STN ACCEPTABLE) TOTAL CELLS COUNTED (test code=TCC) #CELLS SEGMENTED NEUTROPHILS (test code=SEG) % 39-69 LYMPHOCYTE (test code=LYMPH) % 25-55 MONOCYTE (test code=MON) % 0-10 EOSINOPHIL (test code=EOS) % 0.0-5.0 CABOT RINGS (test code=CAB) MORPHOLOGY COMMENT (test code=MOC) PLATELET ESTIMATE (test code=PLTEST) PLATELET MORPHOLOGY (test code=PLTMORPH) CBC W/MANUAL [id number] 12:28:00 * Test Item Value Reference Range Comments WHITE BLOOD CELL (test code=WBC) 11.9 K/mm3 4.5-12.5 RED BLOOD CELL (test code=RBC) 1.78 mill/mm3 3.7-5.2 HEMOGLOBIN (test code=HGB) 8.3 gram/dL 11.5-15.5 HEMATOCRIT (test code=HCT) 20.5 % 36.0-46.0 Results called to [id number] by BIANCA 07/19/18 1223Critical results verified and read back by Nurse? Y MEAN CELL VOLUME (test code=MCV) 113.3 fL 80-98 Result possibly inaccurate due to strong cold agglutinin.Refer to RBC morphorlogy. MEAN CELL HGB (test code=MCH) 46.6 picogram 27.0-33.0 MEAN CELL HGB CONCETRATION (test code=MCHC) 40.5 gram/dL 33.0-36.0 RED CELL DISTRIBUTION WIDTH (test code=RDW) 26.1 % 11.6-16.2 RED CELL DISTRIBUTION WIDTH SD (test code=RDW-SD) 64.6 fL 37.0-51.0 PLATELET COUNT (test code=PLT) 280 K/mm3 150-450 MEAN PLATELET VOLUME (test code=MPV) 11.1 fL 6.7-11.0 IMMATURE GRANULOCYTE % (test code=IG%) 0.9 % 0.0-5.0 NUCLEATED RBC % (test code=NRBC%) 0.3 % 0-0 NEUTROPHIL # (test code=NT#) 7.32 K/mm3 1.8-7.7 IMMATURE GRANULOCYTE # (test code=IG#) 0.11 x10 3/uL 0-0.03 LYMPHOCYTE # (test code=LY#) 3.20 K/mm3 1.0-5.0 MONOCYTE # (test code=MO#) 1.09 K/mm3 0-0.8 EOSINOPHIL # (test code=EO#) 0.10 K/mm3 0.0-0.5 BASOPHIL # (test code=BA#) 0.08 K/mm3 0.0-0.2 NUCLEATED RBC # (test code=NRBC#) 0.03 K/mm3 0.0-0.1 MANUAL DIFF REQUIRED (test code=MDIFF) YES STAIN ACCEPTABILITY (test code=STN ACCEPTABLE) TOTAL CELLS COUNTED (test code=TCC) #CELLS SEGMENTED NEUTROPHILS (test code=SEG) % 39-69 LYMPHOCYTE (test code=LYMPH) % 25-55 MONOCYTE (test code=MON) % 0-10 EOSINOPHIL (test code=EOS) % 0.0-5.0 CABOT RINGS (test code=CAB) MORPHOLOGY COMMENT (test code=MOC) PLATELET ESTIMATE (test code=PLTEST) PLATELET MORPHOLOGY (test code=PLTMORPH) CBC W/MANUAL [id number] 12:28:00 * Test Item Value Reference Range Comments WHITE BLOOD CELL (test code=WBC) 11.9 K/mm3 4.5-12.5 RED BLOOD CELL (test code=RBC) 1.78 mill/mm3 3.7-5.2 HEMOGLOBIN (test code=HGB) 8.3 gram/dL 11.5-15.5 HEMATOCRIT (test code=HCT) 20.5 % 36.0-46.0 Results called to [id number] by BIANCA 07/19/18 1223Critical results verified and read back by Nurse? Y MEAN CELL VOLUME (test code=MCV) 113.3 fL 80-98 Result possibly inaccurate due to strong cold agglutinin.Refer to RBC morphorlogy. MEAN CELL HGB (test code=MCH) 46.6 picogram 27.0-33.0 MEAN CELL HGB CONCETRATION (test code=MCHC) 40.5 gram/dL 33.0-36.0 RED CELL DISTRIBUTION WIDTH (test code=RDW) 26.1 % 11.6-16.2 RED CELL DISTRIBUTION WIDTH SD (test code=RDW-SD) 64.6 fL 37.0-51.0 PLATELET COUNT (test code=PLT) 280 K/mm3 150-450 MEAN PLATELET VOLUME (test code=MPV) 11.1 fL 6.7-11.0 IMMATURE GRANULOCYTE % (test code=IG%) 0.9 % 0.0-5.0 NUCLEATED RBC % (test code=NRBC%) 0.3 % 0-0 NEUTROPHIL # (test code=NT#) 7.32 K/mm3 1.8-7.7 IMMATURE GRANULOCYTE # (test code=IG#) 0.11 x10 3/uL 0-0.03 LYMPHOCYTE # (test code=LY#) 3.20 K/mm3 1.0-5.0 MONOCYTE # (test code=MO#) 1.09 K/mm3 0-0.8 EOSINOPHIL # (test code=EO#) 0.10 K/mm3 0.0-0.5 BASOPHIL # (test code=BA#) 0.08 K/mm3 0.0-0.2 NUCLEATED RBC # (test code=NRBC#) 0.03 K/mm3 0.0-0.1 MANUAL DIFF REQUIRED (test code=MDIFF) YES STAIN ACCEPTABILITY (test code=STN ACCEPTABLE) TOTAL CELLS COUNTED (test code=TCC) #CELLS SEGMENTED NEUTROPHILS (test code=SEG) % 39-69 LYMPHOCYTE (test code=LYMPH) % 25-55 MONOCYTE (test code=MON) % 0-10 EOSINOPHIL (test code=EOS) % 0.0-5.0 MORPHOLOGY COMMENT (test code=MOC) PLATELET ESTIMATE (test code=PLTEST) PLATELET MORPHOLOGY (test code=PLTMORPH) CBC W/MANUAL [id number] 12:28:00 * Test Item Value Reference Range Comments WHITE BLOOD CELL (test code=WBC) 11.9 K/mm3 4.5-12.5 RED BLOOD CELL (test code=RBC) 1.78 mill/mm3 3.7-5.2 HEMOGLOBIN (test code=HGB) 8.3 gram/dL 11.5-15.5 HEMATOCRIT (test code=HCT) 20.5 % 36.0-46.0 Results called to [id number] by BIANCA 07/19/18 1223Critical results verified and read back by Nurse? Y MEAN CELL VOLUME (test code=MCV) 113.3 fL 80-98 Result possibly inaccurate due to strong cold agglutinin.Refer to RBC morphorlogy. MEAN CELL HGB (test code=MCH) 46.6 picogram 27.0-33.0 MEAN CELL HGB CONCETRATION (test code=MCHC) 40.5 gram/dL 33.0-36.0 RED CELL DISTRIBUTION WIDTH (test code=RDW) 26.1 % 11.6-16.2 RED CELL DISTRIBUTION WIDTH SD (test code=RDW-SD) 64.6 fL 37.0-51.0 PLATELET COUNT (test code=PLT) 280 K/mm3 150-450 MEAN PLATELET VOLUME (test code=MPV) 11.1 fL 6.7-11.0 IMMATURE GRANULOCYTE % (test code=IG%) 0.9 % 0.0-5.0 NUCLEATED RBC % (test code=NRBC%) 0.3 % 0-0 NEUTROPHIL # (test code=NT#) 7.32 K/mm3 1.8-7.7 IMMATURE GRANULOCYTE # (test code=IG#) 0.11 x10 3/uL 0-0.03 LYMPHOCYTE # (test code=LY#) 3.20 K/mm3 1.0-5.0 MONOCYTE # (test code=MO#) 1.09 K/mm3 0-0.8 EOSINOPHIL # (test code=EO#) 0.10 K/mm3 0.0-0.5 BASOPHIL # (test code=BA#) 0.08 K/mm3 0.0-0.2 NUCLEATED RBC # (test code=NRBC#) 0.03 K/mm3 0.0-0.1 MANUAL DIFF REQUIRED (test code=MDIFF) YES STAIN ACCEPTABILITY (test code=STN ACCEPTABLE) TOTAL CELLS COUNTED (test code=TCC) #CELLS SEGMENTED NEUTROPHILS (test code=SEG) % 39-69 LYMPHOCYTE (test code=LYMPH) % 25-55 MONOCYTE (test code=MON) % 0-10 MORPHOLOGY COMMENT (test code=MOC) PLATELET ESTIMATE (test code=PLTEST) PLATELET MORPHOLOGY (test code=PLTMORPH) CBC W/MANUAL [id number] 12:28:00 * Test Item Value Reference Range Comments WHITE BLOOD CELL (test code=WBC) 11.9 K/mm3 4.5-12.5 RED BLOOD CELL (test code=RBC) 1.78 mill/mm3 3.7-5.2 HEMOGLOBIN (test code=HGB) 8.3 gram/dL 11.5-15.5 HEMATOCRIT (test code=HCT) 20.5 % 36.0-46.0 Results called to [id number] by BIANCA 07/19/18 1223Critical results verified and read back by Nurse? Y MEAN CELL VOLUME (test code=MCV) 113.3 fL 80-98 Result possibly inaccurate due to strong cold agglutinin.Refer to RBC morphorlogy. MEAN CELL HGB (test code=MCH) 46.6 picogram 27.0-33.0 MEAN CELL HGB CONCETRATION (test code=MCHC) 40.5 gram/dL 33.0-36.0 RED CELL DISTRIBUTION WIDTH (test code=RDW) 26.1 % 11.6-16.2 RED CELL DISTRIBUTION WIDTH SD (test code=RDW-SD) 64.6 fL 37.0-51.0 PLATELET COUNT (test code=PLT) 280 K/mm3 150-450 MEAN PLATELET VOLUME (test code=MPV) 11.1 fL 6.7-11.0 IMMATURE GRANULOCYTE % (test code=IG%) 0.9 % 0.0-5.0 NUCLEATED RBC % (test code=NRBC%) 0.3 % 0-0 NEUTROPHIL # (test code=NT#) 7.32 K/mm3 1.8-7.7 IMMATURE GRANULOCYTE # (test code=IG#) 0.11 x10 3/uL 0-0.03 LYMPHOCYTE # (test code=LY#) 3.20 K/mm3 1.0-5.0 MONOCYTE # (test code=MO#) 1.09 K/mm3 0-0.8 EOSINOPHIL # (test code=EO#) 0.10 K/mm3 0.0-0.5 BASOPHIL # (test code=BA#) 0.08 K/mm3 0.0-0.2 NUCLEATED RBC # (test code=NRBC#) 0.03 K/mm3 0.0-0.1 MANUAL DIFF REQUIRED (test code=MDIFF) YES STAIN ACCEPTABILITY (test code=STN ACCEPTABLE) TOTAL CELLS COUNTED (test code=TCC) #CELLS SEGMENTED NEUTROPHILS (test code=SEG) % 39-69 LYMPHOCYTE (test code=LYMPH) % 25-55 MONOCYTE (test code=MON) % 0-10 EOSINOPHIL (test code=EOS) % 0.0-5.0 CABOT RINGS (test code=CAB) MORPHOLOGY COMMENT (test code=MOC) PLATELET ESTIMATE (test code=PLTEST) PLATELET MORPHOLOGY (test code=PLTMORPH) [id number] 09:19:00* Test Item Value Reference Range Comments TROPONIN-I (test code=TROPI) <0.015 ng/mL 0-0.045 LIPID PROFILE (CORONARY RISK)2018-07-19 09:18:00* Test Item Value Reference Range Comments TRIGLYCERIDES (test code=TRIG) 129 mg/dL 20-150 CHOLESTEROL (test code=CHOL) 145 mg/dL 0-200 CHOLESTEROL/HDL RATIO (test code=CHOLHDL) 3.0 RATIO 0-4.9 RISK ASSOCIATED WITH CHOL/HDL RATIOS: Risk Male Female1/2 AVERAGE 3.43 3.27AVERAGE 4.97 4.442X AVERAGE 9.55 7.053X AVERAGE 23.39 11.04 REFERENCE VALUE IS RELATED TO RISK LEVELS ASRECOMMENDED BY THE JS. HEART, LUNG, AND BLOOD INST. HDL CHOLESTEROL (test code=HDL) 42 mg/dL 40-60 LIPOPROTEIN LDL (test code=LDL) 89 mg/dL 100-129 Reference Interval: mg/dL mmol/L Optimal <100 <2.6Near/above optimal 100-129 2.6- 3.3Borderline High 130-159 3.4-4.1High 160-189 4.1-4.9Very High >=190 >=4.9=========This LDL result is a direct measurement.========= BASIC METABOLIC [id number] 09:17:00* Test Item Value Reference Range Comments SODIUM (test code=NA) 142 mmol/L 136-145 POTASSIUM (test code=K) 3.7 mmol/L 3.5-5.1 CHLORIDE (test code=CL) 110.0 mmol/L 98-107 CARBON DIOXIDE (test code=CO2) 24.0 mmol/L 21-32 ANION GAP (test code=GAP) 11.7 10-20 GLUCOSE (test code=GLU) 177 mg/dL 74-106 BLOOD UREA NITROGEN (test code=BUN) 7 mg/dL 7-18 GLOMERULAR FILTRATION RATE (test code=GFR) > 60 mL/min >=60 Estimated GFR by using Modified MDRD formula.Chronic kidney disease is defined as either kidney damageor GFR <60 mL/min/1.73 m2 for >3 months. CREATININE (test code=CREAT) 0.50 mg/dL 0.55-1.02 Note change in reference range due to change in reagent. BUN/CREATININE RATIO (test code=BUN/CREA) 14.0 10-20 CALCIUM (test code=CA) 8.4 mg/dL 8.5-10.1 [id number] 08:30:00* Test Item Value Reference Range Comments GLUBED (test code=GLUBED) 179 mg/dL 74-106 Performed by certified electrical prospecting operator at [facility] [id number] 00:31:00* Test Item Value Reference Range Comments GLUBED (test code=GLUBED) 197 mg/dL 74-106 Performed by certified electrical prospecting operator at [facility] URINALYSIS [id number] 22:22:00* Test Item Value Reference Range Comments UA COLOR (test code=COLU) YELLOW YELLOW UA APPEARANCE (test code=APPU) HAZY CLEAR UA GLUCOSE DIPSTICK (test code=DGLUU) 1000 (3+) mg/dL NEGATIVE UA BILIRUBIN DIPSTICK (test code=BILU) NEGATIVE mg/dL NEGATIVE UA KETONE DIPSTICK (test code=KETU) 5 (Trace) mg/dL NEGATIVE UA SPECIFIC GRAVITY (test code=SGU) 1.015 1.001-1.035 UA BLOOD DIPSTICK (test code=JOE) 25 (1+) Rajesh/uL NEGATIVE UA PH DIPSTICK (test code=TRAN) 6.0 5.0-8.0 UA PROTEIN DIPSTICK (test code=PROU) 15 (TRACE) mg/dL Neg-15 UA UROBILINIOGEN DIPSTICK (test code=URO) 1 mg/dL 0.0-0.2 UA NITRITE DIPSTICK (test code=RODNEY) NEGATIVE NEGATIVE UA LEUKOCYTE ESTERASE DIPSTICK (test code=LEUU) neg uL NEGATIVE UA WBC (test code=WBCU) NONE SEEN per HPF 0-5 IN SOME URINARY TRACT INFECTIONS THERE MAY NOT BE ENOUGHWBCs IN THE URINE TO TRIGGER AN AUTOMATIC (REFLEX) URINECULTURE. A SEPERATE ORDER FOR URINE CULTURE IS RECOMMENDEDIF THERE IS STRONG SUPPORT FOR A URINARY TRACT INFECTIONCLINICALLY. UA RBC (test code=RBCU) 0-2 per HPF 0-5 UA EPITHELIAL CELLS (test code=EPIU) Rare (0-1/hpf) per HPF Few UA BACTERIA (test code=BACU) FEW per HPF NONE UA MUCUS (test code=MUCU) FEW per LPF NONE-FEW Urine Source? Clean CatchURINALYSIS [id number] 22:17:00* Test Item Value Reference Range Comments UA COLOR (test code=COLU) YELLOW YELLOW UA APPEARANCE (test code=APPU) HAZY CLEAR UA GLUCOSE DIPSTICK (test code=DGLUU) 1000 (3+) mg/dL NEGATIVE UA BILIRUBIN DIPSTICK (test code=BILU) NEGATIVE mg/dL NEGATIVE UA KETONE DIPSTICK (test code=KETU) 5 (Trace) mg/dL NEGATIVE UA SPECIFIC GRAVITY (test code=SGU) 1.015 1.001-1.035 UA BLOOD DIPSTICK (test code=JOE) 25 (1+) Rajesh/uL NEGATIVE UA PH DIPSTICK (test code=TRAN) 6.0 5.0-8.0 UA PROTEIN DIPSTICK (test code=PROU) 15 (TRACE) mg/dL Neg-15 UA UROBILINIOGEN DIPSTICK (test code=URO) 1 mg/dL 0.0-0.2 UA NITRITE DIPSTICK (test code=RODNEY) NEGATIVE NEGATIVE UA LEUKOCYTE ESTERASE DIPSTICK (test code=LEUU) neg uL NEGATIVE UA WBC (test code=WBCU) per HPF 0-5 UA RBC (test code=RBCU) per HPF 0-5 UA EPITHELIAL CELLS (test code=EPIU) per HPF Few UA BACTERIA (test code=BACU) per HPF NONE Urine Source? Clean Catch- CT C-SPINE W/O [id number] 21:14:00 Name: ANDREA,LEEROY [facility] : 1945 Age/S: 73 / F [address] [facility] Unit #: [id number] Loc: [place] [address] Phys: Slime Dejesus Acct: [id number] Di s Date: Status: REG ER PHONE #: Exam Date: 07/18/20182044 FAX #: [phone] Reason: WEAK/DIZZY W/ + FALL EXAMS: CPT CODE: [id number] CT C-SPINE W/O CONTRAST [id number] REASON FOR EXAM: WEAK/DIZZY W/ + FALL EXAM ORDER DATE: 07/18/2018 7:43 PM Ordering MJose J: Milton Dejesus PROCEDURE: - CT C-SPINE W/O CONTRAST FINDINGS: CT images of the cervical spine were obtained without IV contrast at 2.5mm. Reconstructed coronal and sagittal images we re also provided. Dose modulation, iterative reconstruction, and/or weigh t based adjustment of the MA/KV was utilized to reduce the radiation dose to as low as reasonably achievable. The osseous structures are intact. Osteophytes are seen at C5-6 The central canal is singleton nt. The disc space is minimally narrowed at C5-6 I MPRESSION: Degenerative changes of disc disease most pronounced at C5-6. No acute findings Electronically Signed by Elvis Camacho on 019 at 2114 Reported and signed by: Erich Camacho M.D. 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 The joint spaces are maintained. There is normal alignment of the humeral head. The acromial clavicular joint is intact IMPRESSION: Minimally displaced comminuted fracture of the surgical neck of the left humerus at 2111 Reported and signed by: Erich Camacho M.D. 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 Dose modulation, iterative reconstruction, and/or weight based adjustment of the MA/KV was utilized to reduce the radiation dose to as low as reasonably achievable. The b rain parenchyma is within normal limits. The ward-white matter delineation is unremarkable. The ventricles, cisterns, and sulci are unremarkable. Th ere is no evidence of hemorrhage, mass, mass effect. There is no evidence of acute or old infarct. The calvarium is intact. IMPRES ZANDER: Unremarkable brain. at 2106 Reported and signed by: Erich Camacho M.D. CC: Sakina Seymour; Chauncey Gaytan MD; Milton Dejesus Technologist:OVI STAFFORD(R),RDMS,CT CTDI: DLP: Trnscb Date/Time: 07/18/2018 (2106) t.SDR.VTL Orig Print D/T: S: 07/18/2018 (2109) CTDI: DLP: PAGE 1 Signed Report [id number] 21:03:00* Test Item Value Reference Range Comments GLUBED (test code=GLUBED) 274 mg/dL 74-106 Performed by certified electrical prospecting operator at [facility] PROTHROMBIN [id number] 20:29:00* Test Item Value Reference Range Comments PROTHROMBIN TIME PATIENT (test code=PTP) 10.7 seconds 9.0-13.0 INTERNATIONAL NORMAL RATIO (test code=INR) 1.0 0.8-1.2 The therapeutic range for oral anticoagulant therapy formost indications is an international normalized ratio (INR)of between 2.0 and 3.0. The recommended therapeutic INRrange for various clinical situations is listed below: Clinical Situation INR range Pulmonary e mbolism treatment (2.0-3.0)Venous thrombosis treatmentVenous thrombosis prophylaxis (high risk surgery)Prevention of systemic embolism from: Acute myocardial infarction Valvular heart disease Atrial fibrillation Mechanical prosthetic heart valves (2.5-3.5) IS PATIENT ON ANTICOAGULANTS? NTHROMBOPLASTIN TIME [id number] 20:29:00* Test Item Value Reference Range Comments THROMBOPLASTIN TIME PARTIAL (test code=PTT) 19.7 seconds 25.5-34.3 Therapeutic Range for patients on Heparin Therapy is 2 to2.5 times their baseline PTT level. IS PATIENT ON ANTICOAGULANTS? NCBC W/O [id number] 20:22:00* Test Item Value Reference Range Comments WHITE BLOOD CELL (test code=WBC) 9.8 K/mm3 4.5-12.5 RED BLOOD CELL (test code=RBC) 2.16 mill/mm3 3.7-5.2 HEMOGLOBIN (test code=HGB) 9.5 gram/dL 11.5-15.5 HEMATOCRIT (test code=HCT) 23.8 % 36.0-46.0 MEAN CELL VOLUME (test code=MCV) 110.2 fL 80-98 MEAN CELL HGB (test code=MCH) 44.0 picogram 27.0-33.0 MEAN CELL HGB CONCETRATION (test code=MCHC) 39.9 gram/dL 33.0-36.0 RED CELL DISTRIBUTION WIDTH (test code=RDW) 22.1 % 11.6-16.2 RED CELL DISTRIBUTION WIDTH SD (test code=RDW-SD) 53.6 fL 39.1-52.0 PLATELET COUNT (test code=PLT) 318 K/mm3 150-450 MEAN PLATELET VOLUME (test code=MPV) 9.5 fL 6.7-11.0 BASIC METABOLIC [id number] 20:21:00* Test Item Value Reference Range Comments SODIUM (test code=NA) 140 mmol/L 135-148 POTASSIUM (test code=K) 3.7 mmol/L 3.5-5.1 CHLORIDE (test code=CL) 104 mmol/L 101-109 CARBON DIOXIDE (test code=CO2) 23.7 mmol/L 21-32 ANION GAP (test code=GAP) 16 mmol/L 10-20 GLUCOSE (test code=GLU) 327 mg/dL 74-106 BLOOD UREA NITROGEN (test code=BUN) 7 mg/dL 3-21 GLOMERULAR FILTRATION RATE (test code=GFR) > 60 mL/min >=60 Estimated GFR by using Modified MDRD formula.Chronic kidney disease is defined as either kidney damageor GFR <60 mL/min/1.73 m2 for >3 months. CREATININE (test code=CREAT) 0.84 mg/dL 0.55-1.3 BUN/CREATININE RATIO (test code=BUN/CREA) 8.3 10-20 CALCIUM (test code=CA) 9.1 mg/dL 8.4-10.2 HEPATIC FUNCTION [id number] 20:21:00* Test Item Value Reference Range Comments TOTAL PROTEIN (test code=PROT) 8.0 g/dL 6.5-8.4 ALBUMIN (test code=ALB) 3.7 g/dL 3.4-4.8 GLOBULIN (test code=GLOB) 4.3 G/DL 1-10 ALBUMIN/GLOBULIN RATIO (test code=A/G) 0.9 RATIO 0.75-1.50 BILIRUBIN TOTAL (test code=BILT) 2.00 mg/dL 0.0-1.0 BILIRUBIN DIRECT (test code=BILD) 0.40 mg/dL 0.0-0.30 SGOT/AST (test code=AST) 8 U/L 6-32 SGPT/ALT (test code=ALT) 22 U/L 12-78 Note: Change in REFERENCE RANGE due to new reagent method. ALKALINE PHOSPHATASE TOTAL (test code=ALKP) 117 U/L 38-126 [id number] 20:21:00* Test Item Value Reference Range Comments TROPONIN-I (test code=TROPI) <0.015 ng/mL 0.00-0.056
[2018-08-24 14:35] VITALS: BP 146/63
== END 2018-08-24 14:37 | disposition home or self-care (01) ==
LOC: ER 13:21
DX: R21 Rash and other nonspecific skin eruption (principal); B37.2 Candidiasis of skin and nail
CPT/HCPCS: 99282